=== PATIENT | female | born 1960 | race Caucasian/White ===

== ENCOUNTER 2018-12-05 09:00 | Outpatient (RCR) | payer MEDICARE, OTHER ==
--- NOTE | 2018-11-20 07:50 | NUR ---
11/17/18 Patient in office today for Treatment team review. Pt presents clean and neat. Pt is alert and oriened x 3. Pt is in a bright mood. Pt denies any suicidal thoughts at this time. Pt stated to the doctor that sometimes she is sad. Pt states that she enjoys coming to the IOP. Pt will continue with IOP 3x/week. Pt will follow up in one month. Treatment team concluded.
[2018-11-30 12:04] VITALS: BP 120/84
[~2018-12-05] VITALS: Ht 168.9 cm; Wt 88.5 kg
[~2018-12-05 09:00] MED LIST: ABILIFY10 M1 PO; ATENOLOL25 MG PO; CLOZAPINE100 MG PO; DIVALPROEX500 MG PO; FERR SULFATE325 MG PO; FLUOXETINE40 MG PO; FOLIC ACID1 M1 PO; TENORMIN PO; TRAZODONE100 MG PO
--- NOTE | 2018-12-07 13:11 | NUR ---
12/07/18 1254 Call to patient and spoke with caregiver Marco. Marco states the pt did not attend IOP today because she had a doctor appointment and a mammography. She states pt will be in tomorrow.
== END 2018-12-07 23:59 | disposition still patient (30) ==
LOC: PATHWAYS 09:00
PROVIDERS: ATTEND Specialist
DX: F20.0 Paranoid schizophrenia (principal); Z86.59 Personal history of other mental and behavioral disorders